=== PATIENT | male | born 1940 | race Caucasian/White ===

== ENCOUNTER → 2017-10-09 | Outpatient (CLI) | payer OTHER | LOC: BMCIMAGING 15:23 | PROVIDERS: ATTEND Internal Medicine Rheumatology | DX: M20.11 Hallux valgus (acquired), right foot (principal); M20.12 Hallux valgus (acquired), left foot; M19.071 Primary osteoarthritis, right ankle and foot; M19.072 Primary osteoarthritis, left ankle and foot; M77.31 Calcaneal spur, right foot; M77.32 Calcaneal spur, left foot ==

== ENCOUNTER → 2018-05-25 | Outpatient (CLI) | payer OTHER, MEDICARE | LOC: BHFA 09:00 | PROVIDERS: ATTEND Internal Medicine Interventional Cardiology | DX: R00.2 Palpitations (principal) ==

== ENCOUNTER → 2018-06-04 | Outpatient (CLI) | payer OTHER, MEDICARE | LOC: BHFA 13:15 | PROVIDERS: ATTEND Internal Medicine Interventional Cardiology | DX: R00.2 Palpitations (principal); I10 Essential (primary) hypertension ==

== ENCOUNTER → 2018-06-08 | Outpatient (CLI) | payer OTHER, MEDICARE | LOC: BHFA 13:30 | PROVIDERS: ATTEND Internal Medicine Cardiovascular Disease | DX: R94.31 Abnormal electrocardiogram [ECG] [EKG] (principal); R06.02 Shortness of breath; I47.1 Supraventricular tachycardia; I49.3 Ventricular premature depolarization | CPT/HCPCS: 78452; 93017; A9500 ==

== ENCOUNTER → 2018-09-10 | Outpatient (CLI) | payer OTHER, MEDICARE | LOC: BHFA 09:00 | PROVIDERS: ATTEND Internal Medicine Cardiovascular Disease | DX: I49.3 Ventricular premature depolarization (principal); I10 Essential (primary) hypertension ==